=== PATIENT | male | born 1985 | race Caucasian/White ===

== ENCOUNTER 2017-03-06 11:47 | Emergency (ER) | payer MEDICAID ==
--- NOTE | 2017-03-06 12:00 | EDPHY ---
H & P Time Seen by Provider: 03/06/17 11:55 HPI/ROS: CHIEF COMPLAINT: Suspected alcohol intoxication HISTORY OF PRESENT ILLNESS: 31-year-old male arrives via ambulance after he was found sleeping on the sidewalk. There are no reports of trauma or fall or fall from height. There are no structures of height near by. He admits to drinking rum. He was noted to have pinpoint pupils by EMS was given Narcan with no change in presentation. Initial review of systems at 11:50 a.m. is limited to the patient's suspected intoxicant state/altered mental status. REVIEW OF SYSTEMS: A ten point review of systems was performed and is negative with the exception of the items mentioned in the HPI PAST MEDICAL & SURGICAL HISTORY: Denies SOCIAL HISTORY: Positive for alcohol use PHYSICAL EXAM (Prior to examination, patient consented to physical exam, hands were washed and my usual and customary physical exam procedures followed) 1) GENERAL: somnolent, smells of alcohol, Appears to be in no acute distress. 2) HEAD: Normocephalic, atraumatic 3) HEENT: Pupils equal, round, reactive to light bilaterally. Sclera anicteric. No raccoon eyes no Frye sign. 4) NECK: Full range of motion, no meningeal signs. 5) LUNGS: Clear auscultation bilaterally, no wheezes, no rhonchi, no retractions. 6) HEART: Regular rate and rhythm, no murmur, no heave, no gallop. 7) ABDOMEN: No guarding, no rebound, no focal tenderness, negative McBurney's, negative Barrett's, negative Rovsing's, negative peritoneal sign, 8) MUSCULOSKELETAL: Moving all extremities, no focal areas of tenderness, no obvious trauma. No peripheral edema or discoloration. 9) BACK: No CVA tenderness, no midline vertebral tenderness, no fluctuance, no step-off, no obvious trauma, no visual or palpable abnormality. 10) SKIN: No rash, no petechiae. 11) Psychiatric: Patient is oriented X 3, there is no agitation. DIFFERENTIAL DIAGNOSIS: in no particular include but limited to trauma, polysubstance abuse, acute alcohol intoxication Constitutional: Initial Vital Signs Heart Rate 108 H 03/06/17 12:10 Respiratory Rate 18 03/06/17 12:10 Blood Pressure 114/66 03/06/17 12:10 O2 Sat (%) 98 03/06/17 12:10 O2 Delivery Mode Nasal Cannula O2 (L/minute) 2 Allergies/Adverse Reactions: Unable to Assess Allergy (Unverified 03/06/17 11:56) Home Medications: Medication Instructions Recorded Unobtainable 03/06/17 Medical Decision Making - Data Points Laboratory Results: 03/06/17 11:47 Ethyl Alcohol 496 mg/dL H* mg/dL (0-10) Departure - Departure Disposition: Home, Routine, Self-Care Clinical Impression: Alcoholic intoxication Qualifiers: Complication of substance-induced condition: uncomplicated Qualified Code(s): F10.920 - Alcohol use, unspecified with intoxication, uncomplicated Condition: Good Instructions: Alcohol Intoxication (ED) Referrals: [facility] Hours [Outside] - As per Instructions
[2017-03-06 12:58] LABS: ETHANOL SERUM 496 mg/dL (0-10)
[2017-03-06] MEDS ORDERED: CHLORDIAZEPOXIDE 25MG PREPK#6 BTL TAKEHOME ONE ×2 (13:21→17:42)
[2017-03-06 16:07] VITALS: PULSE 80; RESP 14; TEMP 98.4; O2SAT 94
[2017-03-06] MEDS ORDERED: NS 1,000 ML IV ONE (16:54)
[2017-03-06 18:01] VITALS: BP 121/74
== END 2017-03-06 17:55 | disposition home or self-care (01) ==
LOC: EDUNIT#
DX: F10.120 Alcohol abuse with intoxication, uncomplicated (principal)
CPT/HCPCS: G0480